=== PATIENT | female | born 1995 | race Caucasian/White ===

== ENCOUNTER 2020-07-02 20:02 | Emergency (ER) | payer BC ==
[2020-07-02] MEDS ORDERED: Pregabalin 75 MG Cap PO ONE (20:29)
[2020-07-02] MEDS ORDERED: HYDROmorphone 0.5 MG/0.5 ML Syringe IM ONE (20:29)
[2020-07-02 20:32] VITALS: BP 105/77; PULSE 87
--- NOTE | 2020-07-02 20:37 | EDM.PDOC ---
ED HPI GENERAL MEDICAL PROBLEM - General Chief Complaint: General Stated Complaint: MEDICATION REFILL Time Seen by Provider: 07/02/20 20:25 Source of Information: Reports: Patient, RN Notes Reviewed History Limitations: Reports: No Limitations - History of Present Illness INITIAL COMMENTS - FREE TEXT/NARRATIVE: Patient is a 24-year-old female who presents to the ED for a medication refill. Patient notes she has a history of fibromyalgia, and she went to refill her medications from her primary care doc today, and there must have been some miscommunication as this was not refilled and her provider subsequently out of the office until next week Wednesday. Patient notes that she took her last dose of pregabalin 300 mg Wednesday night, and she did not take 1 last night. She notes that she is having all over body pains, chills, some nausea, and some other slight generalized withdrawal symptoms. Patient comes to the ER requesting a refill of her chronic medication at this time. She has had no fevers, any vomiting or diarrhea, she is not complaining of any other sick-like symptoms like cough or shortness of breath. Bilateral Knee Pain Score (Numeric/FACES): 3 Jaw Pain Score (Numeric/FACES): 6 - Related Data Allergies Allergy/AdvReac Type Severity Reaction Status Date / Time No Known Allergies Allergy Verified 07/28/18 09:15 CDT Home Meds: Home Meds Cyclobenzaprine [Flexeril] 1 tab PO ASDIRECTED 07/28/18 [History] Pregabalin 300 mg PO BEDTIME 07/02/20 [History] Pregabalin 300 mg PO BEDTIME #10 capsule 07/02/20 [Rx] Past Medical History - Past Health History Medical/Surgical History: Denies Medical/Surgical History HEENT History: Reports: None Cardiovascular History: Reports: None Respiratory History: Reports: None Gastrointestinal History: Reports: None Genitourinary History: Reports: None [employer] History: Reports: None Musculoskeletal History: Reports: Fibromyalgia Neurological History: Reports: None Psychiatric History: Reports: None Endocrine/Metabolic History: Reports: None Hematologic History: Reports: None Immunologic History: Reports: None Oncologic (Cancer) History: Reports: None Dermatologic History: Reports: None - Infectious Disease History Infectious Disease History: Reports: None - Past Surgical History Head Surgeries/Procedures: Reports: None HEENT Surgical History: Reports: Oral Surgery, Tonsillectomy Cardiovascular Surgical History: Reports: None Respiratory Surgical History: Reports: None GI Surgical History: Reports: None Female Surgical History: Reports: None Endocrine Surgical History: Reports: None Neurological Surgical History: Reports: None Musculoskeletal Surgical History: Reports: None Oncologic Surgical History: Reports: None Dermatological Surgical History: Reports: None Social & Family History - Family History Family Medical History: No Pertinent Family History - Tobacco Use Tobacco Use Status *Q: Never Tobacco User - Caffeine Use Caffeine Use: Reports: Coffee - Recreational Drug Use Recreational Drug Use: No - Living Situation & Occupation Occupation: Student ED ROS GENERAL - Review of Systems Review Of Systems: Comprehensive ROS is negative, except as noted in HPI. ED EXAM, GENERAL - Physical Exam Exam: See Below Exam Limited By: No Limitations General Appearance: Alert, WD/WN, No Apparent Distress Eye Exam: Bilateral Eye: EOMI, Normal Inspection, PERRL Respiratory/Chest: No Respiratory Distress, Lungs Clear, Normal Breath Sounds, No Accessory Muscle Use, Chest Non-Tender Cardiovascular: Normal Peripheral Pulses, Regular Rate, Rhythm, No Edema Peripheral Pulses: 2+: Radial (L), Radial (R) GI/Abdominal: Normal Bowel Sounds, Soft, Non-Tender, No Distention, No Mass Extremities: Normal Inspection, Normal Capillary Refill Neurological: Alert, Oriented, Normal Cognition, No Motor/Sensory Deficits Psychiatric: Normal Affect, Normal Mood Skin Exam: Warm, Dry, Intact, Normal Color, No Rash Course - Vital Signs Last Recorded V/S: Last Vital Signs Temp 97.8 F 07/02/20 20:31 Pulse 87 07/02/20 20:31 Resp 20 07/02/20 20:31 BP 105/77 07/02/20 20:31 Pulse Ox 100 07/02/20 20:31 - Orders/Labs/Meds Meds: Medications Discontinued Medications Generic Name Dose Route Start Last Admin Trade Name Freq PRN Reason Stop Dose Admin Hydromorphone HCl 0.5 mg 07/02/20 20:29 Dilaudid IM 07/02/20 20:30 ONETIME ONE Pregabalin 300 mg 07/02/20 20:29 Lyrica PO 07/02/20 20:30 ONETIME ONE - Re-Assessments/Exams Free Text/Narrative Re-Assessment/Exam: 07/02/20 20:34 Patient presents to the ED for her medication refill purposes. Due to her only missing 1 dose of the medication, we will go ahead and give her her dose of oral meds in the ER, and give her a 0.5 mg IM injection of Dilaudid for pain management. I will give her a prescription enough to get her through until her provider can get back in the office next week. Patient verbalizes understanding of this plan. Departure - Departure Time of Disposition: 20:35 Disposition: Home, Self-Care 01 Condition: Good Clinical Impression: Encounter for medication refill - Discharge Information *PRESCRIPTION DRUG MONITORING PROGRAM REVIEWED*: No *COPY OF PRESCRIPTION DRUG MONITORING REPORT IN PATIENT NURYS: No Prescriptions: Pregabalin 300 mg PO BEDTIME #10 capsule Referrals: PCP,None [Primary Care Provider] - Additional Instructions: You were seen in this ER for a medication refill. You were given your oral dose of medications in the ER, along with a 0.5 mg injection of IM Dilaudid for pain management. A one-time refill of your Lyrica (pregabalin) medication was written on your behalf for 10 days, so you may contact your provider next week Wednesday to get your medications refilled as appropriate. This was sent to the [place] [facility] located in the [place] store, you may go there tonight to pick this medication up and take as directed. Please return to the ER at any time if symptoms change or worsen. Sepsis Event Note (ED) - Evaluation Sepsis Screening Result: No Definite Risk - Focused Exam Vital Signs: Vital Signs Temp Pulse Resp BP Pulse Ox 07/02/20 20:31 97.8 F 87 20 105/77 100
== END 2020-07-02 20:55 | disposition home or self-care (01) ==
LOC: JD.ED 20:02
DX: M25.562 Pain in left knee (principal); M25.561 Pain in right knee; Z76.0 Encounter for issue of repeat prescription
CPT/HCPCS: 96372; 99281; A9270; J1170; 99283